=== PATIENT | male | born 1955 | race African-American/Black ===

== ENCOUNTER 2022-02-20 10:17 | Inpatient (IN) | payer MEDICAID, OTHER ==
[~2022-02-20] VITALS: Ht 167.6 cm; Wt 78.7 kg
[~2022-02-20 10:17] MED LIST: AMLO10TA4 PO; DOCU250C14 MT; EPLE50TA9 PO; FERR-63 PO; FERR-71 MT; HYDR-4134 PO; LOSA100T32 PO; OMEP40CA20 MT; SUCR1TAB MT; TAMS-11 PO
[2022-02-20 11:21] LABS: BASOPHILS % 0.9 % (0.0-2.0); EOSINOPHILS % 2.1 % (0.0-5.0); HEMATOCRIT. 31.5 % (42.0-52.0); HEMOGLOBIN. 9.7 g/dL (14.0-18.0); LYMPHOCYTES % 15.2 % (20.0-50.0); MEAN CORPUSCULAR HEMOGLOBIN 23.7 pg (28.0-32.0); MEAN CORPUSCULAR VOLUME 76.9 fL (80.0-94.0); MEAN PLATELET VOLUME 9.2 fl (7.4-10.4); MONOCYTES % 5.1 % (2.0-8.0); NEUTROPHILS % 76.7 % (40.0-76.0); PLATELET 294 x1000/uL (130-400); RED BLOOD CELL COUNT 4.09 mill/uL (4.7-6.1); RED CELL DISTRIBUTION WIDTH 26.2 % (11.6-14.6)
[2022-02-20 11:26] LABS: CHLORIDE 105 mEq/L (98-107)
[2022-02-20] MEDS ORDERED: POTASSIUM CHLORIDE 20MEQ TABLET SR PO NR (11:45)
[2022-02-20] MEDS ORDERED: PANTOPRAZOLE SODIUM 40 MG/VIAL IV NR (11:45)
[2022-02-20 12:01] LABS: ETHANOL BLOOD < 10 mg/dL; TOTAL IRON BINDING CAPACITY 299 ug/dL (250-450)
[2022-02-20] MEDS: KCL 20MEQ/100ML PREMIX 100 ML IV NR ×2 (12:11→13:51)
[2022-02-20 12:37] LABS: PLATELET ESTIMATE NORMAL
[2022-02-20] MEDS ORDERED: ASPIRIN 325MG EC TABLET PO NR (13:00)
[2022-02-20] MEDS ORDERED: FUROSEMIDE 40MG/4ML VIAL IVP NR (13:00)
[2022-02-20] MEDS ORDERED: NITROGLYCERIN OINT 1GM/INCH UDPKT TD NR (13:00)
[2022-02-20] MEDS ORDERED: ACETAMINOPHEN 325MG TABLET PO PRN (14:30)
[2022-02-20] MEDS ORDERED: DIPHENHYDRAMINE 50MG/ML VIAL IV PRN (14:30)
[2022-02-20] MEDS ORDERED: IPRATROPIUM/ALBUTEROL 0.5-3(2.5)MG/3ML NEB HHN PRN (14:30)
[2022-02-20] MEDS ORDERED: ONDANSETRON HCL 4MG/2ML INJ IV PRN (14:30)
[2022-02-20] MEDS ORDERED: CARVEDILOL 3.125 MG TABLET PO NR (15:00)
[2022-02-20 16:51] VITALS: BP 167/85
[2022-02-20 17:06] VITALS: BP 167/85
[2022-02-20 17:14] LABS: INR 1.2; PROTHROMBIN TIME 12.4 sec (9.6-11.0)
[2022-02-20] MEDS: AMLODIPINE 10MG TABLET PO SCH (17:56)
[2022-02-20] MEDS: SUCRALFATE 1 G/10 ML UDC PO SCH ×2 (17:57→21:29)
[2022-02-20] MEDS: SPIRONOLACTONE 25MG TABLET PO SCH (17:57)
[2022-02-20 19:03] LABS: FERRITIN 26 ng/mL (22-322)
[2022-02-20 19:17] LABS: VITAMIN B12 SERUM 882 pg/mL (211-911)
[2022-02-20 20:00] VITALS: BP 171/95
[2022-02-20] MEDS: PANTOPRAZOLE SODIUM 40 MG/VIAL IV SCH (21:30)
[2022-02-20] MEDS: CLONIDINE 0.1MG TABLET PO PRN (21:30)
[2022-02-20 22:00] VITALS: BP 153/78
[2022-02-21] VITALS (7 sets, daily range): BP systolic 139–178; BP diastolic 70–95
[2022-02-21] MEDS: SUCRALFATE 1 G/10 ML UDC PO SCH ×4 (06:15→21:53)
[2022-02-21] MEDS: CLONIDINE 0.1MG TABLET PO PRN ×2 (06:20→16:47)
[2022-02-21 08:39] LABS: CHLORIDE 105 mEq/L (98-107)
[2022-02-21 08:40] LABS: EOSINOPHILS % 5.4 % (0.0-5.0); HEMATOCRIT. 31.3 % (42.0-52.0); HEMOGLOBIN. 9.7 g/dL (14.0-18.0); MEAN CORPUSCULAR HEMOGLOBIN 23.8 pg (28.0-32.0); MEAN CORPUSCULAR VOLUME 76.7 fL (80.0-94.0); MEAN PLATELET VOLUME 9.5 fl (7.4-10.4); MONOCYTES % 8.6 % (2.0-8.0); PLATELET 302 x1000/uL (130-400); RED BLOOD CELL COUNT 4.08 mill/uL (4.7-6.1); RED CELL DISTRIBUTION WIDTH 25.7 % (11.6-14.6)
[2022-02-21] MEDS: PANTOPRAZOLE SODIUM 40 MG/VIAL IV SCH ×2 (10:05→21:53)
[2022-02-21] MEDS: FUROSEMIDE 40MG/4ML VIAL IVP SCH (10:05)
[2022-02-21] MEDS: SPIRONOLACTONE 25MG TABLET PO SCH (10:05)
[2022-02-21] MEDS: AMLODIPINE 10MG TABLET PO SCH (10:06)
[2022-02-21] MEDS ORDERED: POTASSIUM CHLORIDE INJ 40 MEQ in DEXT 5% WATER 250 ML IV ONE (10:15)
[2022-02-21] MEDS ORDERED: POTASSIUM CHLORIDE 20MEQ TABLET SR PO NR (10:15)
[2022-02-21] MEDS: KCL 20MEQ/100ML X 2 FOR TOTAL KCL 40MEQ/200ML IV SCH ×2 (10:20→13:28)
[2022-02-21 12:51] LABS: CLARITY URINE CLEAR (CLEAR); COLOR URINE YELLOW (YELLOW); KETONES URINE NEGATIVE (NEGATIVE); LEUKOCYTE ESTERASE URINE NEGATIVE (NEGATIVE); NITRITE URINE NEGATIVE (NEGATIVE); OCCULT BLOOD URINE NEGATIVE (NEGATIVE); PROTEIN URINE 1+ (NEGATIVE); SPECIFIC GRAVITY URINE 1.007 (1.005-1.030); UROBILINOGEN URINE 0.2 E.U./dL (0.2-1.0)
[2022-02-21 13:14] LABS: PHOSPHORUS 3.8 mg/dL (2.5-4.9)
[2022-02-21] MEDS: IRON SUCROSE COMPLEX 100 MG/5 ML ML IV SCH (16:48)
[2022-02-21] MEDS ORDERED: DEXTROSE 50% WATER 50ML SYRINGE IV PRN (23:45)
[2022-02-22] VITALS (7 sets, daily range): BP systolic 119–178; BP diastolic 76–97
[2022-02-22 00:34] LABS: *AMPHETAMINES SCREEN URINE NEGATIVE (NEGATIVE); *BARBITURATES SCREEN URINE NEGATIVE (NEGATIVE); *BENZODIAZEPINES SCREEN URINE NEGATIVE (NEGATIVE); *COCAINE SCREEN URINE PRESUMTIVE POSITIVE (NEGATIVE); CANNABINOID URINE SCREEN PRESUMTIVE POSITIVE (NEGATIVE); METHADONE URINE SCREEN NEGATIVE (NEGATIVE); OPIATES URINE SCREEN NEGATIVE (NEGATIVE); PHENCYCLIDINE URINE SCREEN NEGATIVE (NEGATIVE)
[2022-02-22] MEDS: SUCRALFATE 1 G/10 ML UDC PO SCH ×4 (06:14→21:03)
[2022-02-22 06:48] LABS: BASOPHILS % 1.8 % (0.0-2.0); EOSINOPHILS % 5.4 % (0.0-5.0); HEMATOCRIT. 33.6 % (42.0-52.0); HEMOGLOBIN. 10.5 g/dL (14.0-18.0); LYMPHOCYTES % 18.1 % (20.0-50.0); MEAN CORPUSCULAR HEMOGLOBIN 23.7 pg (28.0-32.0); MEAN CORPUSCULAR VOLUME 76.1 fL (80.0-94.0); MEAN PLATELET VOLUME 9.4 fl (7.4-10.4); MONOCYTES % 7.7 % (2.0-8.0); PLATELET 326 x1000/uL (130-400); RED BLOOD CELL COUNT 4.41 mill/uL (4.7-6.1); RED CELL DISTRIBUTION WIDTH 24.9 % (11.6-14.6)
[2022-02-22 07:15] LABS: CHLORIDE 104 mEq/L (98-107)
[2022-02-22] MEDS: INSULIN LISPRO 100 UNITS/ML SUBCUT SCH ×4 (07:20→21:00)
[2022-02-22 07:24] LABS: PHOSPHORUS 2.8 mg/dL (2.5-4.9)
[2022-02-22] MEDS: BLOOD SUGAR DIAGNOSTIC STRIP TEST SCH ×4 (07:28→21:04)
[2022-02-22] MEDS: PANTOPRAZOLE SODIUM 40 MG/VIAL IV SCH ×2 (09:20→21:03)
[2022-02-22] MEDS: FUROSEMIDE 40MG/4ML VIAL IVP SCH (09:20)
[2022-02-22] MEDS: POTASSIUM CHLORIDE 20MEQ TABLET SR PO SCH ×2 (09:20→17:10)
[2022-02-22] MEDS: LISINOPRIL 10MG TABLET PO SCH (09:20)
[2022-02-22] MEDS: SPIRONOLACTONE 25MG TABLET PO SCH (09:20)
[2022-02-22] MEDS: AMLODIPINE 10MG TABLET PO SCH (09:21)
[2022-02-22] MEDS: CLONIDINE 0.1MG TABLET PO PRN (13:50)
[2022-02-22] MEDS: IRON SUCROSE COMPLEX 100 MG/5 ML ML IV SCH (17:10)
[2022-02-23] VITALS (7 sets, daily range): BP systolic 156–188; BP diastolic 78–104
[2022-02-23] MEDS: SUCRALFATE 1 G/10 ML UDC PO SCH ×4 (06:57→21:17)
[2022-02-23] MEDS: BLOOD SUGAR DIAGNOSTIC STRIP TEST SCH ×4 (06:58→21:17)
[2022-02-23 07:07] LABS: BASOPHILS % 0.5 % (0.0-2.0); EOSINOPHILS % 6.4 % (0.0-5.0); HEMATOCRIT. 32.3 % (42.0-52.0); LYMPHOCYTES % 19.4 % (20.0-50.0); MEAN CORPUSCULAR HEMOGLOBIN 23.6 pg (28.0-32.0); MEAN PLATELET VOLUME 9.2 fl (7.4-10.4); MONOCYTES % 10.4 % (2.0-8.0); NEUTROPHILS % 63.3 % (40.0-76.0); PLATELET 317 x1000/uL (130-400); RED BLOOD CELL COUNT 4.25 mill/uL (4.7-6.1); RED CELL DISTRIBUTION WIDTH 24.6 % (11.6-14.6)
[2022-02-23 07:11] LABS: CHLORIDE 105 mEq/L (98-107)
[2022-02-23] MEDS: INSULIN LISPRO 100 UNITS/ML SUBCUT SCH ×4 (07:20→21:00)
[2022-02-23] MEDS ORDERED: POTASSIUM CHLORIDE INJ 40 MEQ in DEXT 5% WATER 250 ML IV ONE (08:15)
[2022-02-23] MEDS: PANTOPRAZOLE SODIUM 40 MG/VIAL IV SCH ×2 (08:31→21:17)
[2022-02-23] MEDS: FUROSEMIDE 40MG/4ML VIAL IVP SCH (08:34)
[2022-02-23] MEDS: LISINOPRIL 10MG TABLET PO SCH (08:34)
[2022-02-23] MEDS: AMLODIPINE 10MG TABLET PO SCH (08:37)
[2022-02-23] MEDS: POTASSIUM CHLORIDE 20MEQ TABLET SR PO SCH ×2 (08:37→16:24)
[2022-02-23] MEDS: SPIRONOLACTONE 25MG TABLET PO SCH (08:38)
[2022-02-23] MEDS: KCL 20MEQ/100ML X 2 FOR TOTAL KCL 40MEQ/200ML IV SCH ×2 (08:39→21:16)
[2022-02-23] MEDS: IRON SUCROSE COMPLEX 100 MG/5 ML ML IV SCH (16:22)
[2022-02-23] MEDS: CLONIDINE 0.1MG TABLET PO PRN (18:55)
[2022-02-23] MEDS ORDERED: KCL 20MEQ/100ML PREMIX 100 ML IV NR (21:00)
[2022-02-24] VITALS (7 sets, daily range): BP systolic 135–178; BP diastolic 76–95
[2022-02-24] MEDS: CLONIDINE 0.1MG TABLET PO PRN (05:03)
[2022-02-24] MEDS: SUCRALFATE 1 G/10 ML UDC PO SCH ×4 (05:59→21:02)
[2022-02-24 06:35] LABS: BASOPHILS % 1.3 % (0.0-2.0); EOSINOPHILS % 6.4 % (0.0-5.0); HEMATOCRIT. 31.9 % (42.0-52.0); HEMOGLOBIN. 9.9 g/dL (14.0-18.0); LYMPHOCYTES % 17.6 % (20.0-50.0); MEAN CORPUSCULAR HEMOGLOBIN 23.6 pg (28.0-32.0); MEAN CORPUSCULAR VOLUME 76.3 fL (80.0-94.0); MEAN PLATELET VOLUME 9.4 fl (7.4-10.4); MONOCYTES % 10.3 % (2.0-8.0); NEUTROPHILS % 64.4 % (40.0-76.0); PLATELET 304 x1000/uL (130-400); RED BLOOD CELL COUNT 4.18 mill/uL (4.7-6.1); RED CELL DISTRIBUTION WIDTH 24.1 % (11.6-14.6)
[2022-02-24] MEDS: BLOOD SUGAR DIAGNOSTIC STRIP TEST SCH ×4 (06:36→21:02)
[2022-02-24] MEDS: INSULIN LISPRO 100 UNITS/ML SUBCUT SCH ×4 (07:20→21:30)
[2022-02-24] MEDS: PANTOPRAZOLE SODIUM 40 MG/VIAL IV SCH ×2 (09:49→21:02)
[2022-02-24] MEDS: FUROSEMIDE 40MG/4ML VIAL IVP SCH (09:50)
[2022-02-24] MEDS: POTASSIUM CHLORIDE 20MEQ TABLET SR PO SCH ×3 (09:50→17:47)
[2022-02-24] MEDS: LISINOPRIL 10MG TABLET PO SCH (09:51)
[2022-02-24] MEDS: AMLODIPINE 10MG TABLET PO SCH (09:52)
[2022-02-24] MEDS: SPIRONOLACTONE 25MG TABLET PO SCH (09:52)
[2022-02-24 09:59] LABS: CHLORIDE 105 mEq/L (98-107)
[2022-02-24] MEDS: FUROSEMIDE 100MG/10ML VIAL IVP SCH ×2 (13:49→17:47)
[2022-02-25 04:00] VITALS: BP 182/88
[2022-02-25] MEDS: SUCRALFATE 1 G/10 ML UDC PO SCH (06:05)
[2022-02-25] MEDS: CLONIDINE 0.1MG TABLET PO PRN (06:07)
[2022-02-25] MEDS: BLOOD SUGAR DIAGNOSTIC STRIP TEST SCH ×2 (06:07→11:50)
[2022-02-25] MEDS: INSULIN LISPRO 100 UNITS/ML SUBCUT SCH ×2 (07:20→12:20)
[2022-02-25 08:37] LABS: BASOPHILS % 1.3 % (0.0-2.0); EOSINOPHILS % 6.1 % (0.0-5.0); HEMOGLOBIN. 11.3 g/dL (14.0-18.0); LYMPHOCYTES % 22.7 % (20.0-50.0); MEAN CORPUSCULAR HEMOGLOBIN 23.9 pg (28.0-32.0); MEAN CORPUSCULAR VOLUME 76.1 fL (80.0-94.0); MEAN PLATELET VOLUME 9.6 fl (7.4-10.4); MONOCYTES % 7.4 % (2.0-8.0); NEUTROPHILS % 62.5 % (40.0-76.0); PLATELET 357 x1000/uL (130-400); RED BLOOD CELL COUNT 4.74 mill/uL (4.7-6.1); RED CELL DISTRIBUTION WIDTH 24.2 % (11.6-14.6)
[2022-02-25] MEDS: PANTOPRAZOLE SODIUM 40 MG/VIAL IV SCH (08:57)
[2022-02-25] MEDS: FUROSEMIDE 100MG/10ML VIAL IVP SCH (08:58)
[2022-02-25 08:59] LABS: CHLORIDE 102 mEq/L (98-107)
[2022-02-25] MEDS ORDERED: SPIRONOLACTONE 25MG TABLET PO SCH (09:00)
[2022-02-25] MEDS: AMLODIPINE 10MG TABLET PO SCH (09:01)
[2022-02-25] MEDS: LISINOPRIL 10MG TABLET PO SCH (09:01)
[2022-02-25] MEDS: POTASSIUM CHLORIDE 20MEQ TABLET SR PO SCH (09:02)
[2022-02-25] MEDS ORDERED: FURO40TA5 MT (11:10)
[2022-02-25] MEDS ORDERED: LISI10TA26 PO (11:10)
[2022-02-25] MEDS ORDERED: POTA-204 PO (11:10)
[2022-02-25] MEDS ORDERED: SPIR25TA PO (11:10)
[2022-02-25 12:34] VITALS: BP 161/81
[2022-02-25] MEDS ORDERED: POTASSIUM CHLORIDE 20MEQ TABLET SR PO SCH (13:00)
== END 2022-02-25 13:07 | disposition home or self-care (01) | DRG 253 ==
LOC: ER 10:17 → EDBEDREQ 11:52 → 3WST 12:52 → EDBEDREQTM 13:01 → EDBEDREQ 13:01 → ENRESERV 13:06
PROVIDERS: ADMIT Internal Medicine; ATTEND Internal Medicine
DX: K92.2 Gastrointestinal hemorrhage, unspecified (principal); I50.43 Acute on chronic combined systolic (congestive) and diastolic (congestive) heart failure; I21.A1 Myocardial infarction type 2; I31.39 Other pericardial effusion (noninflammatory); N17.9 Acute kidney failure, unspecified; D57.1 Sickle-cell disease without crisis; D50.9 Iron deficiency anemia, unspecified; F17.200 Nicotine dependence, unspecified, uncomplicated; I27.20 Pulmonary hypertension, unspecified; I11.0 Hypertensive heart disease with heart failure; E87.6 Hypokalemia; N40.0 Benign prostatic hyperplasia without lower urinary tract symptoms; I16.0 Hypertensive urgency; I07.1 Rheumatic tricuspid insufficiency; I34.0 Nonrheumatic mitral (valve) insufficiency; E80.6 Other disorders of bilirubin metabolism; Z90.49 Acquired absence of other specified parts of digestive tract; Z82.49 Family history of ischemic heart disease and other diseases of the circulatory system; Z53.29 Procedure and treatment not carried out because of patient's decision for other reasons
CPT/HCPCS: 36415; 71045; 76770; 80048; 80053; 80305; 80320; 81003; 82550; 82607; 82728; 82746; 82962; 83036; 83540; 83550; 83735; 83880; 83930; 83935; 84100; 84133; 84484; 85025; 85044; 86850; 86900; 87426; 93005; 93306; 93970; 99291; C9113; C9803; J1940; J3480; G0480

== ENCOUNTER 2023-10-12 09:24 | Emergency (ER) | payer MEDICAID ==
[~2023-10-12] VITALS: Ht 167.6 cm; Wt 79.0 kg
[~2023-10-12 09:24] MED LIST changes: -AMLO10TA4 PO; +ASPI-1406 PO; +CLOP-31 MT; +COLC0.6C3 MT; +COR25 PO; -EPLE50TA9 PO; -FERR-63 PO; -FERR-71 MT; +FERR-71 PO; +FURO40TA5 PO; +FURO80TA87 MT; +GABA-532 PO; +HYDR-4001 MT; -HYDR-4134 PO; +HYDR25TA78 PO; +HYDR50TA39 PO; +INDO-14 MT; +LIP40 PO; -LOSA100T32 PO; +METO-385 PO; +POTA-205 MT; +POTA-354 PO; +SPIR25TA PO
[2023-10-12 09:41] VITALS: BP 210/120; PULSE 67; RESP 16; TEMP 98.7; O2SAT 100
[2023-10-12 10:55] LABS: BASOPHILS % 0.8 % (0.0-2.0); DIFFERENTIAL COMMENT 0; HEMATOCRIT. 40.3 % (42.0-52.0); HEMOGLOBIN. 12.4 g/dL (14.0-18.0); LYMPHOCYTES % 16.5 % (20.0-50.0); MEAN CORPUSCULAR HEMOGLOBIN 24.4 pg (28.0-32.0); MEAN CORPUSCULAR HGB CONC 30.8 g/dL (31.0-37.0); MEAN PLATELET VOLUME 8.7 fl (7.4-10.4); MONOCYTES % 12.7 % (2.0-8.0); PLATELET 255 x1000/uL (130-400); RED CELL DISTRIBUTION WIDTH 17.5 % (11.6-14.6); WHITE BLOOD COUNT 8.6 x1000/uL (4.5-11.0)
[2023-10-12 11:05] LABS: CHLORIDE 99 mEq/L (98-107); SODIUM 139 mEq/L (136-145)
[2023-10-12 11:06] LABS: CARBON DIOXIDE 30 mEq/L (21-32)
[2023-10-12 11:07] LABS: CALCIUM 9.1 mg/dL (8.7-10.4)
[2023-10-12 11:11] LABS: CREATININE 1.4 mg/dL (0.6-1.3); GLUCOSE 125 mg/dL (70-105); POTASSIUM 2.7 mEq/L (3.5-5.1)
[2023-10-12 11:12] LABS: UREA NITROGEN BLOOD 21 mg/dL (9-23)
[2023-10-12] MEDS: POTASSIUM CHLORIDE 20MEQ/PACKET PO ONE (11:46)
[2023-10-12 14:05] LABS: CHLORIDE 99 mEq/L (98-107); POTASSIUM 3.3 mEq/L (3.5-5.1); SODIUM 138 mEq/L (136-145)
[2023-10-12 14:06] LABS: CARBON DIOXIDE 29 mEq/L (21-32)
[2023-10-12 14:07] LABS: CALCIUM 9.2 mg/dL (8.7-10.4)
[2023-10-12 14:12] LABS: CREATININE 1.4 mg/dL (0.6-1.3); GLUCOSE 117 mg/dL (70-105); UREA NITROGEN BLOOD 22 mg/dL (9-23)
== END 2023-10-12 14:51 | disposition home or self-care (01) ==
LOC: ER 09:24
DX: E87.6 Hypokalemia (principal); I11.0 Hypertensive heart disease with heart failure; I50.9 Heart failure, unspecified; Z90.49 Acquired absence of other specified parts of digestive tract; Z98.890 Other specified postprocedural states
CPT/HCPCS: 36415; 80048; 83735; 85025; 93005; 99284

== ENCOUNTER 2023-11-30 07:08 | Emergency (ER) | payer MEDICAID, OTHER ==
[~2023-11-30] VITALS: Ht 170.2 cm; Wt 79.5 kg
[~2023-11-30 07:08] MED LIST changes: +DOCU-150 MT; +FAMO40TA7 MT; +FURO-151 MT; -POTA-354 PO
[2023-11-30 07:20] VITALS: O2SAT 98
[2023-11-30] MEDS: IBUPROFEN 600MG TABLET PO ONE (08:30)
[2023-11-30] MEDS ORDERED: IBUP-2029 MT (08:39)
[2023-11-30 09:05] VITALS: BP 138/78; PULSE 70; RESP 18; TEMP 98.7
== END 2023-11-30 09:35 | disposition home or self-care (01) ==
LOC: ER 07:15
DX: S63.91XA Sprain of unspecified part of right wrist and hand, initial encounter (principal); I11.0 Hypertensive heart disease with heart failure; I50.9 Heart failure, unspecified; Z90.49 Acquired absence of other specified parts of digestive tract; Z98.890 Other specified postprocedural states; Z79.899 Other long term (current) drug therapy; X58.XXXA Exposure to other specified factors, initial encounter; Y93.89 Activity, other specified; Y92.89 Other specified places as the place of occurrence of the external cause; Y99.8 Other external cause status
CPT/HCPCS: 29125; 73130; 99283